=== PATIENT | male | born 1955 | race Caucasian/White ===

== ENCOUNTER 2018-09-23 12:17 | Emergency (ER) | payer MEDICARE, BC ==
--- NOTE | 2018-09-23 12:47 | ED ---
Neurological HPI - HPI Summary HPI Summary: A 63 y/o male presents to [facility] with a chief complaint of feeling like his head is in a box since 09/20/18. He also reports intermittent dizziness and feeling off balance. He claims that he has had left arm and leg pain yesterday and woke up with blurry vision this morning. He reports that his vision is back to normal now. He claims that he has been somewhat forgetful. He denies any N/ V. At triage he rated his pain as a 0/10 in severity. He lives alone. He has a Hx of atrial fibrillation and sleep apnea. 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 Vital signs while in room HR: 84 bpm, O2 Sat: 97, BP: 176/95. - History of Current Complaint Chief Complaint: EDNeurologicalDeficit Stated Complaint: "MY HEAD IS IN A BOX" POSS STROKE PER PT Time Seen by Provider: 09/23/18 12:28 Hx Obtained From: Patient Onset/Duration: Sudden Onset, Started days ago, Still Present Timing: Intermittent Episodes Lasting: - days Onset Severity: Mild Current Severity: None Pain Intensity: 0 Pain Scale Used: 0-10 Numeric Character: Dizzy Aggravating: Nothing Alleviating: Nothing Associated Signs and Symptoms: Positive: Visual Changes, Dizziness, Lightheadness. Negative: Nausea/Vomiting, Fever - Allergy/Home Medications Allergies/Adverse Reactions: Allergies Allergy/AdvReac Type Severity Reaction Status Date / Time Iodinated Contrast- Oral and Allergy Hives Verified 09/23/18 12:25 IV Dye Home Medications: Home Medications Irbesartan/Hydrochlor 150/12.5 [Irbesartan/Hydrochlorothi 150-12.5 mg] 1 tab PO DAILY 09/23/18 [History Confirmed 09/23/18] PMH/Surg Hx/FS Hx/Imm Hx Cardiovascular History: Reports: Hx Hypertension - Surgical History Surgery Procedure, Year, and Place: CERVICAL SPINE Infectious Disease History: No Infectious Disease History: Denies: Traveled Outside the [place] in Last 30 Days - Social History Alcohol Use: Daily Substance Use Type: Reports: None Smoking Status (MU): Former Smoker Review of Systems Negative: Fever Positive: Blurred Vision Negative: Vomiting, Nausea Positive: Myalgia Neurological: Other - Positive: dizziness, lightheadedness, feels like "head is in a box". All Other Systems Reviewed And Are Negative: Yes Physical Exam - Summary Physical Exam Summary: Appearance: The patient is well-nourished in no acute distress and in no acute pain. Skin: The skin is warm and dry and skin color reflects adequate perfusion. HEENT: The head is normocephalic and atraumatic. The pupils are equal and reactive. Horizontal fatiguing nystagmus to the right. The conjunctivae are clear and without drainage. Nares are patent and without drainage. Mouth reveals moist mucous membranes and the throat is without erythema and exudate. The external ears are intact. The ear canals are patent and without drainage. The tympanic membranes are intact. Neck: The neck is supple with full range of motion and non-tender. There are no carotid bruits. There is no neck vein distension. Respiratory: Chest is non-tender. Lungs are clear to auscultation and breath sounds are symmetrical and equal. Cardiovascular: Heart rate is irregularly irregular. There is no murmur or rub auscultated. There is no peripheral edema and pulses are symmetrical and equal. Abdomen: The abdomen is soft and non-tender. There are normal bowel sounds heard in all four quadrants and there is no organomegaly palpated. Musculoskeletal: There is no back tenderness noted. Extremities are non-tender with full range of motion. There is good capillary refill. There is no peripheral edema or calf tenderness elicited. Neurological: Patient is alert and oriented to person, place and time. The patient has symmetrical motor strength in all four extremities. Cranial nerves are grossly intact. Deep tendon reflexes are symmetrical and equal in all four extremities. Psychiatric: The patient has an appropriate affect and does not exhibit any anxiety or depression. Triage Information Reviewed: Yes Vital Signs On Initial Exam: Initial Vitals Temp Pulse Resp BP Pulse Ox 98.4 F 82 16 175/95 96 09/23/18 12:19 09/23/18 12:19 09/23/18 12:19 09/23/18 12:19 09/23/18 12:19 Vital Signs Reviewed: Yes - [place] Coma Scale Best Eye Response: 4 - Spontaneous Best Motor Response: 6 - Obeys Commands Best Verbal Response: 5 - Oriented Coma Scale Total: 15 Diagnostics - Vital Signs Vital Signs Temp Pulse Resp BP Pulse Ox 09/23/18 12:19 98.4 F 82 16 175/95 96 - Laboratory Result Diagrams: 09/23/18 12:57 09/23/18 12:57 Lab Statement: Any lab studies that have been ordered have been reviewed, and results considered in the medical decision making process. - CT Brain CT Interpretation Completed By: Radiologist Summary of CT Findings: NO ACUTE INTRACRANIAL PATHOLOGY. MILD SINUS MUCOSAL INFLAMMATORY DISEASE, WITH AN AIR-FLUID LEVEL IN THE RIGHT MAXILLARY. SINUS. IN THE CORRECT CLINICAL SETTING, THIS MAY REPRESENT ACUTE SINUSITIS. ED physician has reviewed this imaging report. Brain MRI CT Interpretation Completed By: Radiologist Summary of CT Findings: 1. NO EVIDENCE FOR ACUTE INTRACRANIAL ABNORMALITY. 2. FINDINGS SUGGESTIVE OF MILD CHRONIC SMALL VESSEL ISCHEMIC CHANGES. 3. AIR- FLUID LEVELS WITHIN THE RIGHT MAXILLARY AND SPHENOID SINUS. IN THE CORRECT CLINICAL. SETTING, THIS MAY REPRESENT ACUTE SINUSITIS. ED physician has reviewed this imaging report. - EKG 12:57 Cardiac Rate: Other Rate - Atrial fibrillation at 84 bpm EKG Rhythm: Atrial Fibrillation Summary of EKG Findings: Atrial fibrillation at 84 bpm, normal ST, no ectopy, no STEMI. NIH Scale - NIH Scale Level of Consciousness: Alert/Keenly Responsive Ask Patient the Month and His/Her Age: Both Correct Ask Pt to Open/Close Eyes and Case Technician/Release Non-Paretic Hand: Both Correctly Best Gaze (Only Horizontal Eye Movement): Normal Visual Field Testing: No Visual Loss Facial Paresis-Pt to Smile & Close Eyes or Grimace Symmetry: Normal/Symmetrical Motor Function - Right Arm: No Drift-Holds 10 Seconds Motor Function - Left Arm: No Drift-Holds 10 Seconds Motor Function - Right Leg: No Drift-Holds 10 Seconds Motor Function - Left Leg: No Drift-Holds 10 Seconds Limb Ataxia-Must be out of Proportion to Weakness Present: Absent Sensory (Use Pinprick to Test Arms/Legs/Trunk/Face): Normal Best Language (Describe Picture, Name Items): No Aphasia Dysarthria (Read Several Words): Normal Extinction and Inattention: No Abnormality Total Score: 0 Course/Dx - Course Course Of Treatment: Mr. Harris presented with about 4 days of vague dizziness. He describes it as an off-balance feeling although he is able to walk around it was accompanied by some blurred vision which was transient. He denies any speech difficulties but he lives alone and hasn't really been talking to anyone. His initial workup was negative and I spoke with Dr. Montano about the concern for a possible posterior CVA. He recommended MRI scan and if negative the patient could be safely discharged. MRI revealed some sinusitis. Mr. Harris did have some nystagmus to the right and I will treat him for labyrinthitis symptomatically and decongestant for sinusitis. I recommended close follow-up with his PCP next week. - Diagnoses Provider Diagnoses: Labyrinthitis, Sinusitis Discharge - Sign-Out/Discharge Documenting (check all that apply): Patient Departure - DC Patient Received Moderate/Deep Sedation with Procedure: No - Discharge Plan Condition: Stable Disposition: HOME Prescriptions: Loratadine/Pseudoephedrine [Claritin-D 12 Hour Tablet] 1 each PO BID PRN #20 tab.er.12h PRN Reason: Congestion Meclizine TAB* [Antivert 12.5 TAB*] 25 mg PO TID PRN #20 tab PRN Reason: Dizziness Patient Education Materials: Sinusitis (ED) Referrals: Stanislaw Davis MD [Primary Care Provider] - (next week) Additional Instructions: Return to the ED if you experience any new or worsening symptoms. - Billing Disposition and Condition Condition: STABLE Disposition: Home - Attestation Statements Document Initiated by Scribe: Yes Documenting Scribe: Heraclio Singh Provider For Whom Lydia is Documenting (Include Credential): Reza Bennett MD Scribe Attestation: Heraclio Mckinney, scribed for Reza Bennett MD on 09/23/18 at 1837. Scribe Documentation Reviewed: Yes Provider Attestation: The documentation as recorded by the Heraclio lugo accurately reflects the service I personally performed and the decisions made by me, Reza Bennett MD Status of Scribe Document: Viewed
[2018-09-23] MEDS ORDERED: NS 0.9% 1000 ML** 1,000 ML IV ONE (12:48)
[2018-09-23 13:09] LABS: ABS Basophils 0 10^3/ul (0-0.2); ABS Eosinophils 0.1 10^3/ul (0-0.6); ABS Lymphocytes 1.7 10^3/ul (1.0-4.8); ABS Monocytes 0.7 10^3/ul (0-0.8); ABS Neutrophils 6.3 10^3/ul (1.5-7.7); ABS Nucleated RBC 0 10^3/ul; Eosinophil % 0.7 %; Hematocrit 40 % (36-46); Hemoglobin 13.8 g/dL (14.0-18.0); Mean Corpuscular HGB Conc 34 g/dL (31-36); Mean Corpuscular Hemoglobin 31 pg (27-31); Mean Corpuscular Volume 90 fL (80-94); Mean Platelet Volume 7.5 fL (7.4-10.4); Nucleated Red Blood Cells % 0.1; Platelet Count 230 10^3/uL (150-450); Red Blood Count 4.43 10^6 /uL (4.18-5.48); Red Cell Distribution Width 13 % (10.5-15); White Blood Count 8.8 10^3/uL (3.5-10.8)
[2018-09-23 13:14] LABS: INR 1.38 (0.77-1.02)
[2018-09-23 13:27] LABS: Troponin I 0.01 ng/mL (<0.04)
[2018-09-23 13:29] LABS: ALT 29 U/L (7-52); AST 25 U/L (13-39); Albumin 4.6 g/dL (3.2-5.2); Albumin/Globulin Ratio 1.6 (1-3); Alkaline Phosphatase 55 U/L (34-104); Anion Gap 8 mmol/L (2-11); BUN/Creatinine Ratio 19.2 (8-20); Blood Urea Nitrogen 14 mg/dL (6-24); C Reactive Protein < 1.00 mg/L (<8.01); CO2 Carbon Dioxide 28 mmol/L (22-32); Calcium 9.3 mg/dL (8.6-10.3); Chloride 97 mmol/L (101-111); EGFR African American 130.5 (>60); EGFR Non-African American 107.8 (>60); Globulin 2.8 g/dL (2-4); Glucose 104 mg/dL (70-100); Magnesium 1.9 mg/dL (1.9-2.7); Potassium 3.7 mmol/L (3.5-5.0); Sodium 133 mmol/L (135-145); Total Protein 7.4 g/dL (6.4-8.9)
[2018-09-23 14:11] LABS: TSH (Thyroid Stimulating Horm) 1.81 mcIU/mL (0.34-5.60)
[2018-09-23 15:06] LABS: Urine Appearance Clear; Urine Bilirubin Negative (Negative); Urine Blood Negative (Negative); Urine Color Straw; Urine Glucose Negative (Negative); Urine Ketones Negative (Negative); Urine Nitrite Negative (Negative); Urine Protein Negative (Negative); Urine Specific Gravity 1.003 (1.010-1.030); Urine Urobilinogen Negative (Negative)
[2018-09-23 18:10] VITALS: BP 172/96
== END 2018-09-23 18:05 | disposition home or self-care (01) ==
LOC: ED 12:17
DX: H83.09 Labyrinthitis, unspecified ear (principal); J32.9 Chronic sinusitis, unspecified; R42 Dizziness and giddiness; Z87.891 Personal history of nicotine dependence; H53.8 Other visual disturbances
CPT/HCPCS: 36415; 70450; 70551; 80053; 81003; 83605; 83735; 84443; 84484; 85025; 85610; 86140; 93005; 99283